=== PATIENT | female | born 1990 | race African-American/Black ===

== ENCOUNTER 2016-09-17 08:05 | Emergency (ER) | payer BC ==
[2016-09-17 07:50] LABS: INFLUENZA A SCREEN NEGATIVE (NEGATIVE); INFLUENZA B SCREEN NEGATIVE (NEGATIVE)
== END 2016-09-17 08:15 | disposition home or self-care (01) ==
LOC: ER 08:05
PROVIDERS: Nurse Practitioner
DX: J20.9 Acute bronchitis, unspecified (principal); J32.9 Chronic sinusitis, unspecified; G43.909 Migraine, unspecified, not intractable, without status migrainosus
CPT/HCPCS: 87070; 87804; 87880; 99284